=== PATIENT | female | born 1995 | race Caucasian/White ===

== ENCOUNTER 2024-09-26 09:40 | Emergency (ER) | payer MEDICAID ==
[2024-09-26] MEDS ORDERED: Sodium Chloride 0.9% 10 ML Syringe FLUSH PRN (10:08)
[2024-09-26] MEDS: Ketorolac 15 MG/ML SDV IVPUSH ONE (10:12)
[2024-09-26 10:15] LABS: MEAN PLATELET VOLUME 8.6 fL (7.1-12.4); PLATELET COUNT,PLT 311 x10(3)uL (151-488); RED BLOOD CELL COUNT 5.10 x10(6)uL (3.60-5.20); RED CELL DISTRIBUTION WIDTH 13.0 % (12.3-16.5); WHITE BLOOD CELL COUNT,WBC 20.6 x10-3/uL (3.0-10.3)
[2024-09-26 10:19] LABS: BLOOD UREA NITROGEN,BUN 9 mg/dL (7-18); CARBON DIOXIDE,CO2 26 mmol/L (21-32); CHLORIDE,CL 99 mmol/L (100-110); CREATININE 1.1 mg/dL (0.55-1.02); EST CRCL DRUG DOSING (CG) 66.68 mL/min; ESTIMATED GFR 69 mL/min (>60); GLUCOSE RANDOM 83 mg/dL (80-116); POTASSIUM,K 3.6 mmol/L (3.5-5.3); SODIUM,NA 137 mmol/L (135-145)
[2024-09-26 10:25] LABS: A/G RATIO 1.3; ALANINE AMINOTRANSFERASE,ALT 24 U/L (12-36); ASPARTATE AMNIOTRANSFERASE,AST 16 IU/L (5-25); BILIRUBIN TOTAL 1.4 mg/dL (0.1-1.3); PROTEIN TOTAL,TP 8.1 g/dL (6.0-8.0)
[2024-09-26 10:37] LABS: LACTIC ACID 1.4 mmol/L (0.4-2.0)
[2024-09-26 10:52] LABS: GLUCOSE,URINE NORMAL (NORMAL); OCCULT BLOOD,URINE LARGE (NEGATIVE)
[2024-09-26 10:55] LABS: APPEARANCE,URINE CLOUDY (CLEAR)
[2024-09-26] MEDS: LORazepam 2 MG/ML SDV IVPUSH ONE (11:19)
[2024-09-26 11:25] LABS: SQUAMOUS EPITHELIAL CELLS,UR FEW (NS,R,O)
[2024-09-26 11:43] LABS: BAND PERCENT MAN 3 % (0-6); LYMPHOCYTES PERCENT MAN 19 % (13-37); MONOCYTES PERCENT MAN 4 % (4-12); SEG NEUTROPHILS PERCENT MAN 74 % (46-82)
== END 2024-09-26 11:40 | disposition home or self-care (01) ==
LOC: FB.ED 09:40
DX: N39.0 Urinary tract infection, site not specified (principal); F17.210 Nicotine dependence, cigarettes, uncomplicated; F17.290 Nicotine dependence, other tobacco product, uncomplicated; Z79.899 Other long term (current) drug therapy
CPT/HCPCS: 74176; 80053; 81001; 83605; 83690; 85025; 86140; 87086; 87088; 87186; 96361; 96374; 96375; 99283; 99284-25; A9270-GY; J0696; J1885; J2060; J7030